=== PATIENT | female | born 1960 | race Caucasian/White ===

== ENCOUNTER 2017-02-15 22:24 | Inpatient (IN) | payer SELFPAY ==
[~2017-02-15] VITALS: Ht 157.5 cm; Wt 90.7 kg
[2017-02-15 22:25] VITALS: BP 155/82
[2017-02-15] MEDS ORDERED: Solu-MEDROL 125mg Inj IVP ONE (22:30)
[2017-02-15] MEDS ORDERED: Ipratropium 0.02% Inh Soln 2.5ml UD HHN ONE (22:30)
[2017-02-15] MEDS ORDERED: Albuterol ud Inhalation HHN ONE (22:30)
--- NOTE | 2017-02-15 22:31 | Emergency Room Report ---
History of Present Illness General Chief Complaint: Dyspnea/Respdistress Source: Patient, EMS Present Illness HPI This is a 56-year-old female with a psychiatric history. She's taking Seroquel. She's also pack-a-day smoker. She presents with chief complaint of shortness of breath the last week. Worse tonight. Denies smoking last 5 hours because she said she can't breathe her well. Coughing. Denies any fever chills denies any chest pain. Never had this problem before. Per EMS, her room air pulse ox was 81%. On oxygen and breathing treatment it went up to 97% . She denies any weight gain or edema. Not taking any medication. Allergies: Coded Allergies: No Known Allergies (Unverified , 02/15/17) Patient History Past Medical History: see triage record, old chart reviewed, psych hx Past Surgical History: other Pertinent Family History: none Social History: Reports: smoking Now: No Immunizations: other Reviewed Nursing Documentation: PMH: Agreed, PSxH: Agreed Nursing Documentation-PMH Past Medical History: No History, Except For Hx COPD: Yes History Of Psychiatric Problem: Yes - multiple suicidal attempts Review of Systems Eye: Denies: blurred vision, eye pain ENT: Denies: ear pain, nose congestion, throat swelling Respiratory: Reports: cough, shortness of breath Cardiovascular: Denies: chest pain, palpitations Gastrointestinal: Denies: abdominal pain, diarrhea, nausea, vomiting Musculoskeletal: Denies: back pain, joint pain Skin: Denies: rash Neurological: Denies: headache, numbness Endocrine: Denies: increased thirst, increased urine Hematologic/Lymphatic: Denies: easy bruising All Other Systems: negative except mentioned in HPI Physical Exam Vital Signs Date Time Temp Pulse Resp B/P Pulse Ox O2 Delivery O2 Flow Rate FiO2 02/15/17 22:15 119 16 155/82 92 Room Air vitals with tachycardia and hypoxia Sp02 EP Interpretation: reviewed, normal General Appearance: well appearing, alert, mild distress Head: normocephalic, atraumatic Eyes: bilateral eye EOMI, bilateral eye PERRL ENT: hearing grossly normal, normal pharynx Neck: full range of motion, supple, no meningismus Respiratory: chest non-tender, decreased breath sounds, wheezing Cardiovascular #1: regular rate, rhythm, no murmur, tachycardia Gastrointestinal: normal bowel sounds, non tender, no mass, no organomegaly, no bruit, non-distended Musculoskeletal: back normal, normal range of motion Neurologic: alert, oriented x3 Psychiatric: mood/affect normal Skin: warm/dry Procedures Critical Care Time Critical Care Time Critical care is mandated in this patient who presented with respiratory distress. Patient require my urgent intervention to attenuate the risks of respiratory collapse which may lead to cardiovascular collapse and . Critical care time is 35 minutes excluding any reportable procedure. Critical care time included evaluation, multiple reevaluation, looking at old charts, interpreting laboratory and diagnostic data, discussing case with patient and family and consultants, and charting. Medical Decision Making Diagnostic Impression: Primary Impression: Respiratory failure with hypoxia Qualified Codes: J96.01 - Acute respiratory failure with hypoxia Additional Impressions: COPD exacerbation New onset type 2 diabetes mellitus Obesity (BMI 30.0-34.9) Hypertension Qualified Codes: I10 - Essential (primary) hypertension ER Course Patient presents with rest or distress and respiratory failure. She felt much better after breathing treatment. Still slightly wheezing. We'll get a CT scan to rule out PE. Most likely she has underlying COPD from chronic smoking. Not on any medication for this. Probably has diabetes and high blood pressure also. Will get for further workup. Prognosis is poor probably secondary to noncompliance with medication. Laboratory Tests Test 02/15/17 22:30 White Blood Count 10.0 K/UL (4.8-10.8) Red Blood Count 4.83 M/UL (4.20-5.40) Hemoglobin 16.5 G/DL (12.0-16.0) H Hematocrit 47.2 % (37.0-47.0) H Mean Corpuscular Volume 98 FL (80-99) Mean Corpuscular Hemoglobin 34.2 PG (27.0-31.0) H Mean Corpuscular Hemoglobin Concent 34.9 G/DL (32.0-36.0) Red Cell Distribution Width 12.1 % (11.6-14.8) Platelet Count 257 K/UL (150-450) Mean Platelet Volume 6.4 FL (6.5-10.1) L Neutrophils (%) (Auto) 76.0 % (45.0-75.0) H Lymphocytes (%) (Auto) 18.8 % (20.0-45.0) L Monocytes (%) (Auto) 4.0 % (1.0-10.0) Eosinophils (%) (Auto) 0.4 % (0.0-3.0) Basophils (%) (Auto) 0.9 % (0.0-2.0) Sodium Level 133 mEQ/L (135-145) L Potassium Level 3.9 mEQ/L (3.4-4.9) Chloride Level 93 mEQ/L (98-107) L Carbon Dioxide Level 23 mEQ/L (20-30) Anion Gap 17 (5-15) H Blood Urea Nitrogen 8 mg/dL (7-23) Creatinine 0.7 mg/dL (0.5-0.9) Estimat Glomerular Filtration Rate > 60 mL/min (>60) Glucose Level 337 mg/dL (74-106) H Calcium Level 9.2 mg/dL (8.6-10.2) Total Bilirubin 0.2 mg/dL (0.0-1.2) Aspartate Amino Transf (AST/SGOT) 19 U/L (5-40) Alanine Aminotransferase (ALT/SGPT) 36 U/L (3-33) H Alkaline Phosphatase 112 U/L (35-104) H Total Creatine Kinase 22 U/L (26-140) L Creatine Kinase MB < 1.5 ng/mL (< 3.8) Creatine Kinase MB Relative Index 6.8 Troponin I < 0.30 ng/mL (<=0.30) Pro-B-Type Natriuretic Peptide 70 pg/mL (0-125) Total Protein 7.0 g/dL (6.6-8.7) Albumin 4.2 g/dL (3.5-5.2) Globulin 2.8 g/dL Albumin/Globulin Ratio 1.5 (1.0-2.7) Serum Alcohol < 10 mg/dL Lab Results Impression labs with elevated glucose EKG Diagnostic Results Rate: normal, tachycardiac Rhythm: NSR ST Segments: no acute changes Rhythm Strip Diag. Results EP Interpretation: yes Rate: 110 Rhythm: NSR, no PVC's, no ectopy Chest X-Ray Diagnostic Results EP Interpretation: Yes Findings: no consolidation, no effusion, no pneumothorax, no acute cardiopulmonary disease Number of Views: 1 CT/MRI/US Diagnostic Results CT/MRI/US Diagnostic Results : Imaging Test Ordered: CT chest Impression read by radiologist. Suboptimal exam. No focal infiltrate. Last Vital Signs Date Time Temp Pulse Resp B/P Pulse Ox O2 Delivery O2 Flow Rate FiO2 02/15/17 22:15 119 16 155/82 92 Room Air Status: improved Disposition: ADMITTED INPATIENT Condition: Serious SHANE CARLISLE M.D. Feb 15, 2017 22:30
[2017-02-15 22:50] LABS: BASOPHILS % (AUTO) 0.9 % (0.0-2.0); EOSINOPHILS % (AUTO) 0.4 % (0.0-3.0); LYMPHOCYTES % (AUTO) 18.8 % (20.0-45.0); MEAN CORPUSCULAR HEMOGLOBIN 34.2 PG (27.0-31.0); MEAN CORPUSCULAR HGB CONC 34.9 G/DL (32.0-36.0); MEAN CORPUSCULAR VOLUME 98 FL (80-99); MEAN PLATELET VOLUME 6.4 FL (6.5-10.1); PLATELET COUNT 257 K/UL (150-450); RED BLOOD COUNT 4.83 M/UL (4.20-5.40); RED CELL DISTRIBUTION WIDTH 12.1 % (11.6-14.8)
[2017-02-15 23:02] LABS: TROPONIN I < 0.30 ng/mL (<=0.30)
[2017-02-15 23:03] LABS: ALANINE AMINOTRANSFERASE 36 U/L (3-33); ALBUMIN/GLOBULIN RATIO 1.5 (1.0-2.7); ALCOHOL < 10 mg/dL; ANION GAP 17 (5-15); ASPARTATE AMINO TRANSFERASE 19 U/L (5-40); CALCIUM 9.2 mg/dL (8.6-10.2); CARBON DIOXIDE 23 mEQ/L (20-30); CHLORIDE 93 mEQ/L (98-107); CREATININE 0.7 mg/dL (0.5-0.9); GLOMERULAR FILTRATION RATE > 60 mL/min (>60); HEMOLYSIS 4; POTASSIUM 3.9 mEQ/L (3.4-4.9); SODIUM 133 mEQ/L (135-145)
[2017-02-15 23:13] LABS: CKMB < 1.5 ng/mL (< 3.8)
[2017-02-15 23:16] VITALS: BP 153/70
[2017-02-16] VITALS (7 sets, daily range): BP systolic 129–163; BP diastolic 70–98
[2017-02-16] MEDS ORDERED: Albuterol ud Inhalation HHN ONE
[2017-02-16 00:17] LABS: APPEARANCE,URINE CLEAR; KETONES,URINE 3+ (NEGATIVE); LEUKOCYTE ESTERASE ,URINE NEGATIVE (NEGATIVE); NITRITE,URINE NEGATIVE (NEGATIVE); PH,URINE 5 (4.5-8.0); PROTEIN,URINE NEGATIVE (NEGATIVE); UROBILINOGEN,URINE NORMAL MG/DL (0.0-1.0)
[2017-02-16] MEDS ORDERED: AMBIEN CR6.25 MG ORAL (00:53)
[2017-02-16] MEDS ORDERED: QUETIAPINE FUMA25 MG ORAL (00:53)
[2017-02-16] MEDS ORDERED: Metoclopramide 10mg/2ml Inj IVP PRN ×2 (01:45→20:00)
[2017-02-16] MEDS ORDERED: Zolpidem 5mg tab ORAL PRN ×2 (01:45→11:15)
[2017-02-16] MEDS ORDERED: Azithromycin Inj IV ONE (02:34)
[2017-02-16] MEDS: Solu-MEDROL 125mg Inj IVP SCH ×2 (02:45→08:59)
[2017-02-16] MEDS ORDERED: cefTRIAXone 1 GM in D5W 55 ML IV SCH (02:45)
[2017-02-16] MEDS ORDERED: Azithromycin 500 MG in D5W 275 ML IV SCH (02:45)
[2017-02-16] MEDS: DuoNeb 0.5-3(2.5)mg/3ml neb HHN SCH ×3 (07:09→19:50)
[2017-02-16] MEDS ORDERED: Tubing IV Secondary IV ONE (08:54)
[2017-02-16] MEDS ORDERED: D5W 275ml ONE (08:54)
[2017-02-16] MEDS ORDERED: NS 275ml ONE (08:54)
[2017-02-16] MEDS ORDERED: SEROQUEL400 MG ORAL (09:31)
[2017-02-16] MEDS ORDERED: SEROQUEL300 MG ORAL (09:31)
--- NOTE | 2017-02-16 09:57 | Diagnostic Imaging Report ---
Indication: Shortness of breath Technique: XRAY CHEST 1 V Comparison: None Findings: The cardiomediastinal silhouette is within normal limits. There is no focal consolidation, pneumothorax or pleural effusion. Chronic right rib fracture deformities are present. Impression: No acute cardiopulmonary disease.
--- NOTE | 2017-02-16 09:57 | Diagnostic Imaging Report ---
Indication: Shortness of breath Technique: CT pulmonary angiogram performed utilizing automated exposure control with intravenous contrast. Axial, sagittal and coronal reconstructions were obtained. 3-D volumetric reconstructions were also performed. CT dose: Total DLP 863 mGycm; CTDI vol 30.4 mGy Comparison: Chest x-ray of from earlier the same day Findings: There is inadequate contrast opacification of the pulmonary arteries. Motion also limits evaluation. A gross central pulmonary embolus is not identified but examination is otherwise insufficient to exclude pulmonary emboli. There is no obvious aortic dissection. There is no focal consolidation. Mild atelectasis is present. No pericardial or pleural effusions are identified. The heart size is within normal limits. There is fatty infiltration of the liver. Chronic appearing right-sided rib fracture deformities are seen. Mild degenerative changes of the spine are noted. Impression: Inadequate contrast opacification of the pulmonary arteries and respiratory motion limiting evaluation. No gross central pulmonary embolus but examination is otherwise insufficient to exclude pulmonary emboli. Further evaluation recommended as indicated. Mild atelectasis. Fatty liver. Chronic appearing right-sided rib fracture deformities. Clinical correlation recommended. The above report is concordant with preliminary reading by [facility]. The CT scanner at [facility] is accredited by the [employer] and the scans are performed using protocols designed to limit radiation exposure to as low as reasonably achievable to attain images of sufficient resolution adequate for diagnostic evaluation.
--- NOTE | 2017-02-16 09:59 | History & Physical ---
History and Physical History & Physicial HP dictated # [id number] HARRISON VEGA Feb 16, 2017 09:59
[2017-02-16] MEDS ORDERED: NovoLOG Insulin Flexpen SUBQ SCH (11:30)
[2017-02-16] MEDS: NovoLOG Insulin Flexpen SUBQ SCH ×2 (16:30→20:45)
--- NOTE | 2017-02-16 17:58 | History and Physical Report ---
DATE OF ADMISSION: 02/15/2017 CHIEF COMPLAINT: Shortness of breath. HISTORY OF PRESENT ILLNESS: This is a 56-year-old white female with history of schizophrenia, who was in her usual state of health until last night when she started getting short of breath and to the degree that she was even unable to talk on the phone. However, she managed finally to call the paramedics. She was brought into the emergency room and was found to have COPD and was admitted. The patient says that this is the first time she has had this problem, although she has been smoking for a long time. She had also some cough and sputum production yesterday. PAST MEDICAL HISTORY: History of schizophrenia and also she was diagnosed apparently with diabetes, but she said she was not given any medications. ALLERGIES: No known drug allergies. SOCIAL HISTORY: The patient smokes less than a pack a day, has been smoking for many years. No history of alcohol abuse. REVIEW OF SYSTEMS: Noncontributory except above. PHYSICAL EXAMINATION: GENERAL: The patient is a mildly obese female, feeling better. VITAL SIGNS: Blood pressure is 147/98, pulse is 92, temperature 96.6 degrees, and respiratory rate is 20. HEENT: Nikolai conjunctivae. Anicteric sclerae. NECK: Supple. LUNGS: Bilateral rhonchi throughout both lung roca. HEART: S1 and S2 without murmurs or rubs. ABDOMEN: Soft and nontender. EXTREMITIES: No cyanosis or edema. LABORATORY AND DIAGNOSTIC DATA: The CBC shows a WBC of 10,000, hematocrit 47.2, hemoglobin 16.5, and platelet is 257,000. Chemistry panel shows serum sodium 133, potassium 3.9, chloride 93, CO2 23, BUN 8 and creatinine 0.7. Troponin was negative. Urinalysis shows 4+ glucose and 3+ ketones. ASSESSMENT: This is a 56-year-old female with schizophrenia and diabetes mellitus, who was admitted with chronic obstructive pulmonary disease, new onset and she may have acute bronchitis as well. PLAN: The patient will be on bronchodilators, IV steroids, antibiotics, and oxygen. Also, we will order blood sugar checks and sliding scale insulin. Edgar Farrar M.D. DR: STEFANI JOB#: [id number] CC:
[2017-02-16] MEDS ORDERED: Solu-MEDROL 125mg Inj IVP SCH (21:00)
[2017-02-16] MEDS: Zolpidem 5mg tab ORAL PRN (23:52)
[2017-02-17] VITALS: BP 140/69
[2017-02-17] MEDS: DuoNeb 0.5-3(2.5)mg/3ml neb HHN SCH ×4 (01:35→19:11)
[2017-02-17] MEDS ORDERED: cefTRIAXone 1 GM in D5W 55 ML IV SCH (02:00)
[2017-02-17 04:00] VITALS: BP 142/76
[2017-02-17] MEDS: Azithromycin 500 MG in D5W 275 ML IV SCH (06:26)
[2017-02-17] MEDS: NovoLOG Insulin Flexpen SUBQ SCH ×4 (06:26→21:46)
[2017-02-17 08:00] VITALS: BP 114/68
[2017-02-17] MEDS ORDERED: NS 550ML IV ONE (08:38)
[2017-02-17] MEDS ORDERED: Tubing IV Secondary IV ONE (08:38)
--- NOTE | 2017-02-17 09:44 | General Progress Note ---
Assessment/Plan Problem List: (1) COPD exacerbation ICD Codes: J44.1 - Chronic obstructive pulmonary disease with (acute) exacerbation SNOMED: 271251015, 100817057 (2) Hypertension ICD Codes: I10 - Essential (primary) hypertension SNOMED: 43055888, 890093617 Qualifiers: Qualified Codes: I10 - Essential (primary) hypertension (3) Obesity (BMI 30.0-34.9) ICD Codes: E66.9 - Obesity, unspecified SNOMED: 919649428, 398271817 (4) New onset type 2 diabetes mellitus ICD Codes: E11.9 - Type 2 diabetes mellitus without complications SNOMED: 56978842 Assessment/Plan switch to po prednisone cont with Bronchodilators Dc Ceftriaxone SSI start metformin Subjective Allergies: Coded Allergies: No Known Allergies (Unverified , 02/15/17) Subjective feels better Objective Last 24 Hour Vital Signs Date Time Temp Pulse Resp B/P Pulse Ox O2 Delivery O2 Flow Rate FiO2 02/17/17 08:00 98.3 98 16 114/68 97 Room Air 02/17/17 07:55 104 22 98 Nasal Cannula 4.0 36 02/17/17 07:45 36 02/17/17 07:45 97 24 95 Nasal Cannula 4.0 36 02/17/17 04:00 97.3 101 19 142/76 92 Room Air 02/17/17 01:44 105 22 97 Nasal Cannula 4.0 36 02/17/17 01:35 36 02/17/17 01:35 106 24 90 Nasal Cannula 4.0 36 02/17/17 00:00 97.7 99 19 140/69 93 Room Air 02/16/17 20:00 103 20 97 Nasal Cannula 4.0 36 02/16/17 20:00 98.6 103 19 135/70 94 Room Air 02/16/17 19:50 98 20 93 Nasal Cannula 4.0 36 02/16/17 19:50 36 02/16/17 15:46 98.1 109 20 129/72 93 Nasal Cannula 4.0 02/16/17 12:36 105 20 98 Nasal Cannula 4.0 36 02/16/17 12:36 36 02/16/17 12:35 100 20 95 Nasal Cannula 4.0 36 02/16/17 11:43 98.2 104 21 142/82 94 Nasal Cannula 4.0 Intake and Output 02/16/17 02/17/17 19:00 07:00 Intake Total 570 ml 360 ml Balance 570 ml 360 ml Intake Oral 570 ml 360 ml # Voids 5 3 # Bowel Movements 3 1 Height (Feet): 5 Height (Inches): 2.00 Weight (Pounds): 200 Cardiovascular: normal rate Respiratory/Chest: lungs clear HARRISON VEGA Feb 17, 2017 09:44
[2017-02-17] MEDS: metFORMIN 500mg tab ORAL SCH ×2 (10:02→17:42)
[2017-02-17] MEDS: PredniSONE 20mg tab ORAL SCH (10:02)
--- NOTE | 2017-02-17 10:38 | Consultation ---
DATE OF CONSULTATION: HISTORY OF PRESENT ILLNESS: This is a 56-year-old female with a history of schizophrenia and depression, who has been admitted to the hospital status post taking an overdose on her medication. She was unsure how many pills she took ____ and she stated "yes that was a suicide attempt" and she just not wanted to live anymore. She wanted to fall asleep and never wake up. She elaborated on her father's a few years ago and stated that she still has over that. During the evaluation, she did have of depressed mood, anhedonia, worthlessness, hopelessness, and decreased energy. She denied any suicidal ideation, however, she is very angry when I spoke to her and advised to psychiatric hospitalization, she raised her voice and asked me not to " ." She asked me to leave her alone and never come back. PAST PSYCHIATRIC HISTORY: She has a history of schizophrenia, several psychiatric hospitalizations, treated with Seroquel and antidepressants in the past. PAST MEDICAL HISTORY: Includes hypertension, hyperlipidemia, and obesity. ALLERGIES: No known drug allergies. SUBSTANCE ABUSE HISTORY: She denied any history of illicit drug use or alcohol. SOCIAL HISTORY: The patient lives by herself. She is unmarried. No children. She states all her family is and she only has a cousin that she is not able to contact with. She is on disability. MENTAL STATUS EXAMINATION: The patient is alert and oriented x3. Somewhat uncooperative with examination and she is very guarded. She is disheveled and unkempt. Her speech is within normal limits. Her volume latency and frequency. Her mood is depressed and irritable. Affect is constricted. Congruent with mood. Thought process is concrete. Thought content, she denies any suicidal or homicidal ideations. She denies any auditory hallucinations or delusions. Cognition is intact. Insight and judgment is impaired. ASSESSMENT: AXIS I Schizophrenia, major depressive disorder, recurrent, moderate. AXIS II Deferred. AXIS III As above. AXIS IV Low to moderate. AXIS V Global assessment of functioning is 20. PLAN: 1. There is not going to be prescribe any medications at this point. 2. When medically cleared, she should be transferred to the psychiatric unit. I will order PET team evaluation. Of note, the patient had a bag of knives and pepper spray with herself. 3. Even though, the patient is not suicidal or homicidal, I still believe she is not in any danger to self and she does not have any support systems. She is depressed and she is very guarded. Pavel Morataya M.D. DR: Rodriguez JOB#: [id number] CC:
[2017-02-17 12:00] VITALS: BP 108/64
[2017-02-17 16:47] VITALS: BP 103/54
[2017-02-17] MEDS ORDERED: LORazepam Inj 2mg/ml 1ml IM ONE ×2 (19:30→20:00)
[2017-02-17] MEDS ORDERED: Haloperidol 5mg/ml Inj IM ONE ×2 (19:30→20:00)
[2017-02-17 20:00] VITALS: BP 161/80
[2017-02-17] MEDS ORDERED: DiphenhydrAMINE 25mg/10ml Elixir ORAL ONE (20:00)
[2017-02-17] MEDS: Zolpidem 5mg tab ORAL PRN (21:40)
[2017-02-18] VITALS: BP 133/63
[2017-02-18] MEDS: DuoNeb 0.5-3(2.5)mg/3ml neb HHN SCH ×4 (01:00→19:35)
[2017-02-18] MEDS ORDERED: Haloperidol 5mg/ml Inj IM ONE (03:00)
[2017-02-18 04:00] VITALS: BP 135/66
[2017-02-18] MEDS: Azithromycin 500 MG in D5W 275 ML IV SCH (04:00)
[2017-02-18] MEDS: NovoLOG Insulin Flexpen SUBQ SCH ×4 (06:19→23:05)
[2017-02-18 07:56] VITALS: BP 128/87
[2017-02-18] MEDS: PredniSONE 20mg tab ORAL SCH (08:48)
[2017-02-18] MEDS: metFORMIN 500mg tab ORAL SCH ×2 (08:49→18:00)
[2017-02-18] MEDS: Azithromycin 250mg tab ORAL SCH (08:50)
[2017-02-18] MEDS: Loperamide 2mg cap ORAL PRN ×4 (10:23→23:11)
[2017-02-18 12:00] VITALS: BP 137/68
[2017-02-18 16:00] VITALS: BP 132/84
[2017-02-18 20:00] VITALS: BP 153/73
--- NOTE | 2017-02-18 22:42 | General Progress Note ---
Assessment/Plan Problem List: (1) COPD exacerbation ICD Codes: J44.1 - Chronic obstructive pulmonary disease with (acute) exacerbation SNOMED: 657733613, 807854047 (2) Hypertension ICD Codes: I10 - Essential (primary) hypertension SNOMED: 13365417, 895274454 Qualifiers: Qualified Codes: I10 - Essential (primary) hypertension (3) Obesity (BMI 30.0-34.9) ICD Codes: E66.9 - Obesity, unspecified SNOMED: 672201517, 476993174 (4) New onset type 2 diabetes mellitus ICD Codes: E11.9 - Type 2 diabetes mellitus without complications SNOMED: 78640929 Assessment/Plan cont steroids Imodium PRN cont with Bronchodilators PET team eval pt is medically cleared for discharge Subjective Allergies: Coded Allergies: No Known Allergies (Unverified , 02/15/17) Subjective feels better C/O diarrhea Objective Last 24 Hour Vital Signs Date Time Temp Pulse Resp B/P Pulse Ox O2 Delivery O2 Flow Rate FiO2 02/18/17 20:00 98.1 103 18 153/73 94 Room Air 02/18/17 19:43 28 02/18/17 19:43 91 20 98 Nasal Cannula 2.0 28 02/18/17 19:34 107 18 95 Nasal Cannula 2.0 28 02/18/17 16:00 98.0 91 20 132/84 94 Room Air 02/18/17 13:00 97 18 95 Nasal Cannula 2.0 28 02/18/17 13:00 97 20 98 Nasal Cannula 2.0 28 02/18/17 12:00 97.5 102 20 137/68 91 Room Air 02/18/17 07:56 98.0 97 20 128/87 95 Room Air 02/18/17 07:21 97 20 98 Nasal Cannula 2.0 28 02/18/17 07:11 97 18 95 Nasal Cannula 2.0 28 02/18/17 07:11 28 02/18/17 04:00 97.9 98 20 135/66 92 Room Air 02/18/17 01:02 Nasal Cannula 02/18/17 01:01 Nasal Cannula 4.0 36 02/18/17 00:00 98.4 103 18 133/63 92 Room Air Intake and Output 02/17/17 02/18/17 19:00 07:00 Intake Total 840 ml 320 ml Balance 840 ml 320 ml Intake Oral 840 ml 320 ml # Voids 3 3 # Bowel Movements 2 2 Height (Feet): 5 Height (Inches): 2.00 Weight (Pounds): 200 Cardiovascular: normal rate Respiratory/Chest: lungs clear HARRISON VEGA Feb 18, 2017 22:42
[2017-02-18] MEDS: Zolpidem 5mg tab ORAL PRN (23:09)
--- NOTE | 2017-02-18 23:48 | Progress Note ---
SUBJECTIVE: The patient attempted to leave the medical center against medical advice. PET team evaluation order has been placed. The patient is very irritable, anxious, uncooperative. She has had a suicide attempt. She is currently denying any suicide attempt, however, she has high risk factors including history of suicide attempt in the past, diagnosed with schizophrenia and depression, living alone, poor support system, and financial issues. MENTAL STATUS EXAMINATION: Alert and oriented x3. Mood is irritable. Affect is constricted, congruent with mood. Thought process is concrete. Thought content, denies any suicidal or homicidal ideations. ASSESSMENT: 1. Schizophrenia. 2. Major depressive disorder. PLAN: 1. The patient will be continued on Seroquel 300 mg at bedtime. 2. She meets the criteria for psychiatric inpatient level of care. Pavel Morataya M.D. DR: KYAW JOB#: [id number] CC:
[2017-02-19] MEDS: DuoNeb 0.5-3(2.5)mg/3ml neb HHN SCH ×4 (00:01→19:00)
[2017-02-19 00:18] VITALS: BP 144/76
[2017-02-19 04:00] VITALS: BP 136/76
[2017-02-19] MEDS: NovoLOG Insulin Flexpen SUBQ SCH ×4 (06:54→21:01)
[2017-02-19 08:00] VITALS: BP 136/63
[2017-02-19] MEDS: PredniSONE 20mg tab ORAL SCH (08:48)
[2017-02-19] MEDS: Azithromycin 250mg tab ORAL SCH (08:48)
[2017-02-19] MEDS: metFORMIN 500mg tab ORAL SCH ×2 (08:48→17:31)
[2017-02-19] MEDS: Loperamide 2mg cap ORAL PRN (08:48)
[2017-02-19 12:00] VITALS: BP 126/73
--- NOTE | 2017-02-19 16:08 | General Progress Note ---
Assessment/Plan Problem List: (1) COPD exacerbation ICD Codes: J44.1 - Chronic obstructive pulmonary disease with (acute) exacerbation SNOMED: 246009134, 218254937 (2) Hypertension ICD Codes: I10 - Essential (primary) hypertension SNOMED: 41193415, 843310908 Qualifiers: Qualified Codes: I10 - Essential (primary) hypertension (3) Obesity (BMI 30.0-34.9) ICD Codes: E66.9 - Obesity, unspecified SNOMED: 685784630, 949696366 (4) New onset type 2 diabetes mellitus ICD Codes: E11.9 - Type 2 diabetes mellitus without complications SNOMED: 99622214 Assessment/Plan cont steroids Imodium PRN cont with Bronchodilators PET team eval pt is medically cleared for discharge discussed with RN Subjective Allergies: Coded Allergies: No Known Allergies (Unverified , 02/15/17) Subjective all noted Objective Last 24 Hour Vital Signs Date Time Temp Pulse Resp B/P Pulse Ox O2 Delivery O2 Flow Rate FiO2 02/19/17 13:04 Room Air 21 02/19/17 13:04 Room Air 21 02/19/17 12:00 97.9 98 18 126/73 89 Simple Mask 02/19/17 08:00 97.2 98 22 136/63 90 Room Air 02/19/17 08:00 92 18 99 Nasal Cannula 2.0 28 02/19/17 07:49 28 02/19/17 07:49 91 18 97 Nasal Cannula 2.0 28 02/19/17 04:00 97.2 94 19 136/76 94 Room Air 02/19/17 00:18 97.0 97 18 144/76 94 Room Air 02/19/17 00:08 93 20 98 Nasal Cannula 2.0 28 02/19/17 00:01 98 20 97 Nasal Cannula 2.0 28 02/19/17 00:01 28 02/18/17 20:00 98.1 103 18 153/73 94 Room Air 02/18/17 19:43 28 02/18/17 19:43 91 20 98 Nasal Cannula 2.0 28 02/18/17 19:34 107 18 95 Nasal Cannula 2.0 28 Intake and Output 02/18/17 02/19/17 18:59 06:59 Intake Total 600 ml 900 ml Balance 600 ml 900 ml Intake Oral 600 ml 900 ml # Voids 3 3 # Bowel Movements 1 Height (Feet): 5 Height (Inches): 2.00 Weight (Pounds): 200 HARRISON VEGA Feb 19, 2017 16:08
--- NOTE | 2017-02-19 16:14 | Cardiology Report ---
APPROVED REPORT EKG Measurement Heart [id number] Sinus tachycardia Otherwise normal ECG
[2017-02-19 16:54] VITALS: BP 110/72
[2017-02-19 20:13] VITALS: BP 132/84
--- NOTE | 2017-02-19 20:18 | Progress Note ---
DATE: 02/19/2017 SUBJECTIVE: The patient was walking outside of her room with the sitter. She continues to be depressed, has irritable mood and decreased energy, and complained of having a sitter. The patient was explained what was the purpose of having a sitter and she denies any suicidal ideation; however, she still has high risk factors and I believe if discharged, she would be high risk for danger to self. MENTAL STATUS EXAMINATION: Alert and oriented x4. Mood is depressed. Affect is constricted, congruent with mood. Thought process is concrete. Thought content, she denies any suicidal or homicidal ideation. No delusions. Insight and judgment impaired. ASSESSMENT: Schizophrenia, status post suicide attempt. PLAN: 1. The patient will be continued on her current medication. 2. PET team evaluation was ordered. The patient will be evaluated once medically cleared. She is currently having diarrhea. 3. Discussed the case with her nurse. Pavel Morataya M.D. DR: Adam JOB#: [id number] CC:
[2017-02-19] MEDS: QUEtiapine 200mg tab ORAL SCH (20:55)
[2017-02-19] MEDS: Zolpidem 5mg tab ORAL PRN (20:57)
[2017-02-20 00:14] VITALS: BP 125/70
[2017-02-20] MEDS: DuoNeb 0.5-3(2.5)mg/3ml neb HHN SCH ×4 (00:48→19:19)
[2017-02-20 04:00] VITALS: BP 135/79
[2017-02-20] MEDS: NovoLOG Insulin Flexpen SUBQ SCH ×4 (06:22→21:11)
[2017-02-20 07:58] VITALS: BP 142/74
[2017-02-20] MEDS: metFORMIN 500mg tab ORAL SCH ×2 (08:14→17:38)
[2017-02-20] MEDS: Azithromycin 250mg tab ORAL SCH (08:14)
[2017-02-20] MEDS: PredniSONE 20mg tab ORAL SCH (08:14)
--- NOTE | 2017-02-20 11:47 | General Progress Note ---
Assessment/Plan Problem List: (1) COPD exacerbation ICD Codes: J44.1 - Chronic obstructive pulmonary disease with (acute) exacerbation SNOMED: 296141503, 801220815 (2) Hypertension ICD Codes: I10 - Essential (primary) hypertension SNOMED: 47804083, 643457216 Qualifiers: Qualified Codes: I10 - Essential (primary) hypertension (3) Obesity (BMI 30.0-34.9) ICD Codes: E66.9 - Obesity, unspecified SNOMED: 626004909, 301799952 (4) New onset type 2 diabetes mellitus ICD Codes: E11.9 - Type 2 diabetes mellitus without complications SNOMED: 85849331 Assessment/Plan taper steroids Imodium PRN cont with Bronchodilators PET team eval pt is medically cleared for discharge discussed with RN Discussed with family lawyer Subjective Allergies: Coded Allergies: No Known Allergies (Unverified , 02/15/17) Subjective In NAD Objective Last 24 Hour Vital Signs Date Time Temp Pulse Resp B/P Pulse Ox O2 Delivery O2 Flow Rate FiO2 02/20/17 07:58 98.1 87 19 142/74 90 Nasal Cannula 02/20/17 06:57 75 18 99 Room Air 02/20/17 06:54 76 18 93 Room Air 02/20/17 04:00 97.2 86 19 135/79 92 Room Air 02/20/17 00:49 Room Air 02/20/17 00:48 Room Air 02/20/17 00:14 97.7 97 18 125/70 91 Room Air 02/19/17 20:13 97.5 92 18 132/84 92 Room Air 02/19/17 19:00 Room Air 02/19/17 19:00 Room Air 02/19/17 16:54 97.3 97 21 110/72 96 Simple Mask 02/19/17 13:04 Room Air 21 02/19/17 13:04 Room Air 21 02/19/17 12:00 97.9 98 18 126/73 89 Simple Mask Intake and Output 02/19/17 02/20/17 19:00 07:00 # Voids 3 2 Height (Feet): 5 Height (Inches): 2.00 Weight (Pounds): 200 Cardiovascular: normal rate Respiratory/Chest: expiratory wheezing - mild HARRISON VEGA Feb 20, 2017 11:46
[2017-02-20 12:00] VITALS: BP 133/65
[2017-02-20 16:00] VITALS: BP 129/47
[2017-02-20] MEDS: Loperamide 2mg cap ORAL PRN (16:56)
[2017-02-20 20:00] VITALS: BP 136/72
[2017-02-20] MEDS: QUEtiapine 200mg tab ORAL SCH (21:54)
[2017-02-20] MEDS: Zolpidem 5mg tab ORAL PRN (21:54)
--- NOTE | 2017-02-20 23:08 | Progress Note ---
SUBJECTIVE: The patient is denying any suicidal or homicidal ideations. Presents with depressed mood, irritable mood, anxiety. Today, came to the hospital and reviewed the notes and medical records of the patient, the patient is in a process of being evicted from her house, [facility] did not accept the patient as the patient has no insurance and is not medically cleared. During the evaluation, the patient still continues to endorse depressed mood, anhedonia, worthlessness, and hopelessness. She denied any suicidal or homicidal ideation. MENTAL STATUS EXAMINATION: The patient is alert and oriented x3. Mood is irritable. Affect is flat. Congruent with mood. Thought process is concrete. Thought content, no suicidal or homicidal ideation. ASSESSMENT: Schizophrenia by history. PLAN: 1. We will continue Seroquel 400 mg at bedtime and 300 mg in the morning. 2. The patient may leave the hospital and she may follow with the outpatient psychiatrist and therapist. Pavel Morataya M.D. DR: Loretta JOB#: [id number] CC:
[2017-02-21] VITALS: BP 133/76
[2017-02-21] MEDS: DuoNeb 0.5-3(2.5)mg/3ml neb HHN SCH ×3 (01:00→13:30)
[2017-02-21 04:00] VITALS: BP 131/62
[2017-02-21] MEDS: NovoLOG Insulin Flexpen SUBQ SCH ×4 (05:58→22:04)
[2017-02-21 08:00] VITALS: BP 130/88
[2017-02-21] MEDS: metFORMIN 500mg tab ORAL SCH ×2 (08:22→17:38)
[2017-02-21] MEDS: Azithromycin 250mg tab ORAL SCH (08:23)
[2017-02-21] MEDS ORDERED: PredniSONE 20mg tab ORAL SCH (09:00)
--- NOTE | 2017-02-21 11:43 | General Progress Note ---
Assessment/Plan Problem List: (1) COPD exacerbation ICD Codes: J44.1 - Chronic obstructive pulmonary disease with (acute) exacerbation SNOMED: 804295648, 694707804 (2) Hypertension ICD Codes: I10 - Essential (primary) hypertension SNOMED: 54368442, 993930328 Qualifiers: Qualified Codes: I10 - Essential (primary) hypertension (3) Obesity (BMI 30.0-34.9) ICD Codes: E66.9 - Obesity, unspecified SNOMED: 381403093, 073506797 (4) New onset type 2 diabetes mellitus ICD Codes: E11.9 - Type 2 diabetes mellitus without complications SNOMED: 48149170 Assessment/Plan taper steroids Imodium PRN cont with Bronchodilators Add Januvia pt is medically cleared for discharge discussed with RN Melani Morataya Subjective Allergies: Coded Allergies: No Known Allergies (Unverified , 02/15/17) Subjective wants to leave Objective Last 24 Hour Vital Signs Date Time Temp Pulse Resp B/P Pulse Ox O2 Delivery O2 Flow Rate FiO2 02/21/17 08:00 97.7 91 19 130/88 93 Room Air 02/21/17 07:47 88 18 99 Room Air 02/21/17 07:37 90 18 95 Room Air 02/21/17 07:37 28 02/21/17 04:00 97.5 92 20 131/62 91 Room Air 02/21/17 03:26 109 20 Room Air 21 02/21/17 01:17 Room Air 02/21/17 01:17 Room Air 02/21/17 00:00 97.3 100 19 133/76 93 Room Air 02/20/17 20:00 97.9 92 19 136/72 91 Room Air 02/20/17 19:24 69 18 99 Room Air 02/20/17 19:18 99 20 93 Room Air 02/20/17 19:18 28 02/20/17 17:17 94 Nasal Cannula 2.0 02/20/17 16:00 98.2 93 20 129/47 91 Room Air 02/20/17 13:05 Room Air 02/20/17 13:04 Room Air 02/20/17 12:00 98.1 93 20 133/65 93 Room Air Intake and Output 02/20/17 02/21/17 19:00 07:00 Intake Total 450 ml 360 ml Balance 450 ml 360 ml Intake Oral 450 ml 360 ml # Voids 3 3 Height (Feet): 5 Height (Inches): 2.00 Weight (Pounds): 200 Cardiovascular: normal rate Respiratory/Chest: lungs clear Edema: no edema noted Generalized HARRISON VEGA Feb 21, 2017 11:43
[2017-02-21] MEDS: Loperamide 2mg cap ORAL PRN (11:52)
[2017-02-21 12:00] VITALS: BP 135/67
[2017-02-21 16:00] VITALS: BP 149/88
[2017-02-21 20:30] VITALS: BP 146/83
[2017-02-21] MEDS: Zolpidem 5mg tab ORAL PRN (22:00)
[2017-02-22] VITALS: BP 138/76
[2017-02-22 04:00] VITALS: BP 149/83
[2017-02-22] MEDS: NovoLOG Insulin Flexpen SUBQ SCH ×4 (06:17→21:03)
[2017-02-22 08:00] VITALS: BP 148/78
[2017-02-22] MEDS: metFORMIN 500mg tab ORAL SCH ×2 (09:29→17:42)
[2017-02-22] MEDS: PredniSONE 20mg tab ORAL SCH (09:41)
[2017-02-22 12:00] VITALS: BP 163/96
[2017-02-22 15:53] VITALS: BP 155/88
[2017-02-22] MEDS: Irbesartan 150mg tablet ORAL SCH (17:42)
--- NOTE | 2017-02-22 18:00 | General Progress Note ---
Assessment/Plan Problem List: (1) COPD exacerbation ICD Codes: J44.1 - Chronic obstructive pulmonary disease with (acute) exacerbation SNOMED: 675186364, 011901531 (2) Hypertension ICD Codes: I10 - Essential (primary) hypertension SNOMED: 74754576, 402523226 Qualifiers: Qualified Codes: I10 - Essential (primary) hypertension (3) Obesity (BMI 30.0-34.9) ICD Codes: E66.9 - Obesity, unspecified SNOMED: 494041162, 788194698 (4) New onset type 2 diabetes mellitus ICD Codes: E11.9 - Type 2 diabetes mellitus without complications SNOMED: 70895860 Assessment/Plan taper steroids Imodium PRN cont with Bronchodilators watch BS Add BP meds pt is medically cleared for discharge discussed with RN Subjective Allergies: Coded Allergies: No Known Allergies (Unverified , 02/15/17) Subjective In NAD Objective Last 24 Hour Vital Signs Date Time Temp Pulse Resp B/P Pulse Ox O2 Delivery O2 Flow Rate FiO2 02/22/17 17:42 155/88 02/22/17 15:53 97.6 88 18 155/88 92 Room Air 02/22/17 12:00 97.0 94 19 163/96 91 Room Air 02/22/17 08:00 97.9 88 20 148/78 91 Room Air 02/22/17 04:00 98.9 90 16 149/83 93 Room Air 02/22/17 00:00 97.3 84 18 138/76 96 Room Air 02/21/17 20:30 97.9 86 16 146/83 93 Room Air Intake and Output 02/21/17 02/22/17 19:00 07:00 Intake Total 600 ml Balance 600 ml Intake Oral 600 ml # Voids 3 Height (Feet): 5 Height (Inches): 2.00 Weight (Pounds): 200 Cardiovascular: normal rate Respiratory/Chest: lungs clear Edema: no edema noted HARRISON Astudillo Feb 22, 2017 18:00
[2017-02-22] MEDS: DuoNeb 0.5-3(2.5)mg/3ml neb HHN SCH (19:58)
[2017-02-22 20:00] VITALS: BP 146/84
[2017-02-22] MEDS: Zolpidem 5mg tab ORAL PRN (21:02)
[2017-02-23] VITALS (7 sets, daily range): BP systolic 130–147; BP diastolic 68–92
[2017-02-23] MEDS: DuoNeb 0.5-3(2.5)mg/3ml neb HHN SCH ×2 (01:26→09:00)
[2017-02-23] MEDS: NovoLOG Insulin Flexpen SUBQ SCH ×4 (05:48→21:35)
[2017-02-23] MEDS: metFORMIN 500mg tab ORAL SCH ×2 (09:15→17:42)
[2017-02-23] MEDS: Irbesartan 150mg tablet ORAL SCH (09:16)
[2017-02-23] MEDS: PredniSONE 20mg tab ORAL SCH (09:18)
[2017-02-23] MEDS ORDERED: Albuterol 90mcg Inhaler 8gm INH PRN (18:00)
--- NOTE | 2017-02-23 18:01 | General Progress Note ---
Assessment/Plan Problem List: (1) COPD exacerbation ICD Codes: J44.1 - Chronic obstructive pulmonary disease with (acute) exacerbation SNOMED: 994883203, 005927419 (2) Hypertension ICD Codes: I10 - Essential (primary) hypertension SNOMED: 15608856, 600039991 Qualifiers: Qualified Codes: I10 - Essential (primary) hypertension (3) Obesity (BMI 30.0-34.9) ICD Codes: E66.9 - Obesity, unspecified SNOMED: 026149971, 259823056 (4) New onset type 2 diabetes mellitus ICD Codes: E11.9 - Type 2 diabetes mellitus without complications SNOMED: 00646733 Assessment/Plan Start Albuterol inhalers watch BS pt is medically cleared for discharge discussed with FABIOLA Benoit Subjective Allergies: Coded Allergies: No Known Allergies (Unverified , 02/15/17) Subjective C/O sputum production Objective Last 24 Hour Vital Signs Date Time Temp Pulse Resp B/P Pulse Ox O2 Delivery O2 Flow Rate FiO2 02/23/17 16:00 97.1 90 18 142/79 90 Room Air 02/23/17 12:09 83 16 99 Nasal Cannula 2.0 28 02/23/17 12:07 28 02/23/17 12:06 83 16 97 Nasal Cannula 2.0 28 02/23/17 12:00 97.3 98 18 147/68 94 Nasal Cannula 2.0 02/23/17 09:16 130/73 02/23/17 09:00 92 18 94 Nasal Cannula 2.0 28 02/23/17 09:00 21 02/23/17 09:00 92 18 88 Room Air 21 02/23/17 08:00 97.3 91 18 130/73 92 Room Air 02/23/17 04:00 97.2 91 18 146/70 92 Room Air 02/23/17 01:34 90 18 98 Room Air 02/23/17 01:26 91 18 93 Room Air 02/23/17 00:00 97.6 79 18 138/80 94 Room Air 02/22/17 20:06 81 18 99 Room Air 02/22/17 20:00 97.9 88 18 146/84 93 Room Air 02/22/17 19:58 88 18 93 Room Air 02/22/17 19:57 88 18 Room Air Intake and Output 02/22/17 02/23/17 19:00 07:00 Intake Total 800 ml Balance 800 ml Intake Oral 800 ml # Voids 4 2 Height (Feet): 5 Height (Inches): 2.00 Weight (Pounds): 200 Cardiovascular: regular rhythm Respiratory/Chest: lungs clear HARRISON VEGA Feb 23, 2017 18:01
[2017-02-23] MEDS: Advair 250/50 Inhaler - 14 dose INH SCH (18:36)
[2017-02-23] MEDS: Zolpidem 5mg tab ORAL PRN (21:30)
[2017-02-24] VITALS: BP 139/71
[2017-02-24 04:00] VITALS: BP 141/78
[2017-02-24] MEDS: NovoLOG Insulin Flexpen SUBQ SCH ×4 (06:20→21:16)
[2017-02-24 08:00] VITALS: BP 145/81
[2017-02-24] MEDS: Advair 250/50 Inhaler - 14 dose INH SCH ×2 (08:54→19:13)
[2017-02-24] MEDS: metFORMIN 500mg tab ORAL SCH ×2 (09:05→17:50)
[2017-02-24] MEDS: PredniSONE 20mg tab ORAL SCH (09:05)
[2017-02-24] MEDS: Irbesartan 150mg tablet ORAL SCH (09:06)
[2017-02-24 11:58] VITALS: BP 131/84
--- NOTE | 2017-02-24 12:48 | General Progress Note ---
Assessment/Plan Problem List: (1) COPD exacerbation ICD Codes: J44.1 - Chronic obstructive pulmonary disease with (acute) exacerbation SNOMED: 182344713, 611528287 (2) Hypertension ICD Codes: I10 - Essential (primary) hypertension SNOMED: 44690010, 315136499 Qualifiers: Qualified Codes: I10 - Essential (primary) hypertension (3) Obesity (BMI 30.0-34.9) ICD Codes: E66.9 - Obesity, unspecified SNOMED: 990927878, 884538561 (4) New onset type 2 diabetes mellitus ICD Codes: E11.9 - Type 2 diabetes mellitus without complications SNOMED: 02487078 Assessment/Plan Albuterol inhalers watch BS pt is medically cleared for discharge discussed with RN Subjective Allergies: Coded Allergies: No Known Allergies (Unverified , 02/15/17) Subjective feels ok Objective Last 24 Hour Vital Signs Date Time Temp Pulse Resp B/P Pulse Ox O2 Delivery O2 Flow Rate FiO2 02/24/17 11:58 96.8 92 20 131/84 95 Nasal Cannula 15.0 02/24/17 09:06 145/81 02/24/17 08:52 94 16 92 Room Air 21 02/24/17 08:52 94 16 93 Room Air 21 02/24/17 08:00 98.2 90 20 145/81 94 Nasal Cannula 15.0 02/24/17 04:00 97.9 98 18 141/78 94 Room Air 02/24/17 00:00 97.5 99 18 139/71 94 Room Air 02/23/17 20:00 97.2 83 18 135/92 96 Room Air 02/23/17 19:29 Room Air 02/23/17 19:28 Room Air 02/23/17 16:00 97.1 90 18 142/79 90 Room Air Intake and Output 02/23/17 02/24/17 19:00 07:00 Intake Total 1000 ml 75 ml Balance 1000 ml 75 ml Intake Oral 1000 ml Other 75 ml # Voids 5 3 Height (Feet): 5 Height (Inches): 2.00 Weight (Pounds): 200 Cardiovascular: normal rate Respiratory/Chest: lungs clear Edema: no edema noted HARRISON Astudillo Feb 24, 2017 12:48
[2017-02-24 16:00] VITALS: BP 149/79
[2017-02-24 20:00] VITALS: BP 137/67
[2017-02-24] MEDS: Zolpidem 5mg tab ORAL PRN (22:11)
[2017-02-25 04:00] VITALS: BP 115/75
[2017-02-25] MEDS: NovoLOG Insulin Flexpen SUBQ SCH ×4 (06:47→20:52)
[2017-02-25] MEDS: Advair 250/50 Inhaler - 14 dose INH SCH (07:31)
[2017-02-25] MEDS: Irbesartan 150mg tablet ORAL SCH (09:17)
[2017-02-25] MEDS: metFORMIN 500mg tab ORAL SCH ×2 (09:17→17:48)
[2017-02-25] MEDS: PredniSONE 20mg tab ORAL SCH (09:17)
[2017-02-25 16:00] VITALS: BP 143/71
[2017-02-25 20:00] VITALS: BP 138/80
--- NOTE | 2017-02-25 20:23 | General Progress Note ---
Assessment/Plan Problem List: (1) COPD exacerbation ICD Codes: J44.1 - Chronic obstructive pulmonary disease with (acute) exacerbation SNOMED: 271258493, 938837666 (2) Hypertension ICD Codes: I10 - Essential (primary) hypertension SNOMED: 48123556, 812159700 Qualifiers: Qualified Codes: I10 - Essential (primary) hypertension (3) Obesity (BMI 30.0-34.9) ICD Codes: E66.9 - Obesity, unspecified SNOMED: 458493673, 964207477 (4) New onset type 2 diabetes mellitus ICD Codes: E11.9 - Type 2 diabetes mellitus without complications SNOMED: 60083979 Assessment/Plan Albuterol inhalers watch BS pt is medically cleared for discharge discussed with RN Subjective Allergies: Coded Allergies: No Known Allergies (Unverified , 02/15/17) Subjective feels ok Objective Last 24 Hour Vital Signs Date Time Temp Pulse Resp B/P Pulse Ox O2 Delivery O2 Flow Rate FiO2 02/25/17 19:30 Room Air 21 02/25/17 19:30 88 20 94 Room Air 21 02/25/17 16:00 98.1 90 20 143/71 93 Room Air 02/25/17 09:17 115/75 02/25/17 07:31 91 20 95 Room Air 15.0 21 02/25/17 07:31 91 20 95 Room Air 21 02/25/17 04:00 91 20 115/75 95 Room Air Intake and Output 02/24/17 02/25/17 19:00 07:00 Intake Total 1000 ml 450 ml Balance 1000 ml 450 ml Intake Oral 1000 ml 450 ml # Voids 5 3 # Bowel Movements 1 1 Height (Feet): 5 Height (Inches): 2.00 Weight (Pounds): 200 Cardiovascular: normal rate Respiratory/Chest: lungs clear HARRISON VEGA Feb 25, 2017 20:22
[2017-02-25] MEDS: Zolpidem 5mg tab ORAL PRN (20:55)
[2017-02-26] VITALS: BP 134/76
--- NOTE | 2017-02-26 01:48 | Progress Note ---
DATE: 02/25/2017 SUBJECTIVE: The patient has been presented with depressed mood, and anhedonia. However, her anxiety and agitation has improved. The patient is less impulsive, less irritable and more engaged. She is back today opened up about having a cousin who is also a air drill operator. She expects that she would feel safe with him. I spoke with the social worker psychiatric, who is very involved in this patient's care. We decided to contact her cousin and if we have a safe time the patient may be discharged. Actually, she has not been suicidal for the past 5 days. The patient stated that she would take her medication, follow up with her psychiatrist and if she becomes suicidal she agreed to go to a nearest emergency room. MENTAL STATUS EXAMINATION: The patient is alert and oriented x4. Cooperative. More pleasant. Mood is depressed. Affect is constricted. Congruent mood. Thought process is concrete. Thought content, no suicidal or homicidal ideation. ASSESSMENT: 1. Schizophrenia. 2. Depression. PLAN: 1. The patient will be continued on citalopram 10 mg in the morning. 2. She will be continued on risperidone and the dosage will be increased to 4 mg at bedtime. 3. At the time of the evaluation, the patient is not an immediate danger to self or others and is not gravely disabled. The patient may be discharged to her cousin and follow up with her psychiatrist. She was provided with a script of her medication. Pavel Morataya M.D. DR: KJ JOB#: [id number] CC:
[2017-02-26 04:00] VITALS: BP 148/82
[2017-02-26] MEDS: NovoLOG Insulin Flexpen SUBQ SCH ×4 (06:12→21:09)
[2017-02-26] MEDS: Advair 250/50 Inhaler - 14 dose INH SCH ×3 (07:29→22:00)
[2017-02-26 08:15] VITALS: BP 132/80
[2017-02-26] MEDS: PredniSONE 20mg tab ORAL SCH (08:38)
[2017-02-26] MEDS: metFORMIN 500mg tab ORAL SCH ×2 (08:39→18:09)
[2017-02-26] MEDS: Irbesartan 150mg tablet ORAL SCH (08:39)
--- NOTE | 2017-02-26 11:29 | General Progress Note ---
Assessment/Plan Problem List: (1) COPD exacerbation ICD Codes: J44.1 - Chronic obstructive pulmonary disease with (acute) exacerbation SNOMED: 323820175, 109357905 (2) Hypertension ICD Codes: I10 - Essential (primary) hypertension SNOMED: 84699098, 634588171 Qualifiers: Qualified Codes: I10 - Essential (primary) hypertension (3) Obesity (BMI 30.0-34.9) ICD Codes: E66.9 - Obesity, unspecified SNOMED: 132393226, 818283639 (4) New onset type 2 diabetes mellitus ICD Codes: E11.9 - Type 2 diabetes mellitus without complications SNOMED: 03419194 Assessment/Plan DC prednisone Advair watch BS pt is medically cleared for discharge discussed with RN Subjective Allergies: Coded Allergies: No Known Allergies (Unverified , 02/15/17) Subjective feels ok Objective Last 24 Hour Vital Signs Date Time Temp Pulse Resp B/P Pulse Ox O2 Delivery O2 Flow Rate FiO2 02/26/17 08:39 132/80 02/26/17 08:15 97.3 98 18 132/80 94 Room Air 02/26/17 07:33 96 19 97 Room Air 21 02/26/17 07:33 94 18 97 Room Air 21 02/26/17 04:00 97.7 82 16 148/82 95 Room Air 02/26/17 00:00 97.3 84 18 134/76 95 Room Air 02/25/17 20:00 97.6 88 18 138/80 93 Room Air 02/25/17 19:30 Room Air 21 02/25/17 19:30 88 20 94 Room Air 21 02/25/17 16:00 98.1 90 20 143/71 93 Room Air Intake and Output 02/25/17 02/26/17 19:00 07:00 Intake Total 320 ml 360 ml Balance 320 ml 360 ml Intake Oral 320 ml 360 ml # Voids 4 2 # Bowel Movements 1 Height (Feet): 5 Height (Inches): 2.00 Weight (Pounds): 200 Cardiovascular: normal rate Respiratory/Chest: lungs clear HARRISON VEGA Feb 26, 2017 11:29
[2017-02-26 12:15] VITALS: BP 124/71
[2017-02-26 15:54] VITALS: BP 143/62
[2017-02-26 20:00] VITALS: BP 145/78
[2017-02-26] MEDS: Zolpidem 5mg tab ORAL PRN (21:04)
[2017-02-27 04:00] VITALS: BP 140/74
[2017-02-27] MEDS: NovoLOG Insulin Flexpen SUBQ SCH ×2 (06:42→11:34)
[2017-02-27 08:08] VITALS: BP 120/73
[2017-02-27] MEDS: metFORMIN 500mg tab ORAL SCH (08:53)
[2017-02-27] MEDS: Irbesartan 150mg tablet ORAL SCH (08:53)
[2017-02-27] MEDS: Advair 250/50 Inhaler - 14 dose INH SCH (09:46)
[2017-02-27] MEDS: Loperamide 2mg cap ORAL PRN (09:52)
[2017-02-27 11:52] VITALS: BP 114/67
--- NOTE | 2017-02-27 12:44 | General Progress Note ---
Assessment/Plan Problem List: (1) COPD exacerbation ICD Codes: J44.1 - Chronic obstructive pulmonary disease with (acute) exacerbation SNOMED: 344736138, 656855361 (2) Hypertension ICD Codes: I10 - Essential (primary) hypertension SNOMED: 13605816, 538354886 Qualifiers: Qualified Codes: I10 - Essential (primary) hypertension (3) Obesity (BMI 30.0-34.9) ICD Codes: E66.9 - Obesity, unspecified SNOMED: 427393124, 677212664 (4) New onset type 2 diabetes mellitus ICD Codes: E11.9 - Type 2 diabetes mellitus without complications SNOMED: 55594652 Assessment/Plan Advair watch BS pt is medically cleared for discharge discussed with RN RUPERTO Dunne Subjective Allergies: Coded Allergies: No Known Allergies (Unverified , 02/15/17) Subjective feels ok Objective Last 24 Hour Vital Signs Date Time Temp Pulse Resp B/P Pulse Ox O2 Delivery O2 Flow Rate FiO2 02/27/17 11:52 97.7 94 21 114/67 97 Room Air 02/27/17 09:49 96 18 95 Room Air 02/27/17 09:45 96 18 95 Room Air 02/27/17 08:53 120/73 02/27/17 08:08 98.3 92 19 120/73 95 Room Air 02/27/17 04:00 97.8 76 18 140/74 96 Room Air 02/26/17 20:00 97.7 89 19 145/78 94 Room Air 02/26/17 19:30 Room Air 21 02/26/17 19:30 Room Air 21 02/26/17 15:54 98.2 93 21 143/62 97 Room Air Intake and Output 02/26/17 02/27/17 19:00 07:00 Intake Total 1200 ml 450 ml Balance 1200 ml 450 ml Intake Oral 1200 ml 450 ml # Voids 2 2 Height (Feet): 5 Height (Inches): 2.00 Weight (Pounds): 200 Cardiovascular: normal rate Respiratory/Chest: lungs clear HARRISON VEGA Feb 27, 2017 12:44
--- NOTE | 2017-02-28 09:42 | Discharge Summary ---
Discharge Summary Hospital Course Date of Admission Feb 15, 2017 at 23:51 Date of Discharge Feb 27, 2017 at 15:34 Admitting Diagnosis COPD exacerbation HPI Maria Del Carmen Hinojosa is a 56 year old female who was admitted on Feb 15, 2017 at 23:51 for Chronic Obstructive Pulmonary Disease Exacerbation Hospital Course [id number] Discharge Discharge Disposition Patient was discharged to Home (01) Discharge Diagnoses: Keyana Palmer NP Feb 28, 2017 09:42
--- NOTE | 2017-03-01 00:08 | Discharge Summary 2 SIG ---
DATE OF ADMISSION: 02/15/2017 DATE OF DISCHARGE: 02/27/2017 [employer]AL DELIVERY SYSTEM: Pavel Morataya M.D. BRIEF HOSPITAL COURSE: The patient is a 56-year-old female with history of schizophrenia, who was in her usual state of health until the day prior to admission. She started getting short of breath and unable to talk to the phone. She called paramedics and at ED, she was found to have chronic obstructive pulmonary disease exacerbation and was admitted for further workup. She was given bronchodilators, IV steroids, oxygen, and IV antibiotics. Dr. Morataya was consulted. The patient was diagnosed to have schizophrenia, major depressive disorder, which is recurrent and moderate. She was given Seroquel 200 mg nightly, which was eventually increased to 400 mg nightly and 300 in the a.m. Steroids were tapered and Januvia was added to the medication regimen. The patient was referred to a psychiatric facility. However, the patient has not been suicidal for the past days. She was continued on citalopram and risperidone 4 mg nightly. nutrition services manager were consulted and was referred. The patient was given outpatient mental health clinic. The patient to follow up with psychiatry as outpatient. FINAL DIAGNOSES: 1. Acute chronic obstructive pulmonary disease exacerbation. 2. Hypertension. 3. Obesity. 4. New onset type 2 diabetes. 5. Schizophrenia. 6. Depression. Edgar Farrar M.D. I have been assigned to dictate discharge summary on this account and I was not involved in the patient's management. Keyana Palmer N.P. DR: LE JOB#: [id number] CC:
== END 2017-02-27 15:34 | disposition home or self-care (01) | DRG 191 ==
LOC: ENRESERVTM → ENRESERVDT → ENRESERV → EDBD 22:24 → EMR 22:35 → 2E 23:51 → EDBEDREQ 02-16 00:07 → 3E 02-16 16:31 → 4E 02-21 18:16
DX: J44.1 Chronic obstructive pulmonary disease with (acute) exacerbation (principal); F33.9 Major depressive disorder, recurrent, unspecified; I10 Essential (primary) hypertension; E11.9 Type 2 diabetes mellitus without complications; E66.9 Obesity, unspecified; F17.200 Nicotine dependence, unspecified, uncomplicated; Z91.14 Patient's other noncompliance with medication regimen; F20.9 Schizophrenia, unspecified; E78.5 Hyperlipidemia, unspecified; Z68.36 Body mass index [BMI] 36.0-36.9, adult
CPT/HCPCS: 36415; 71010; 71275; 80053; 80300; 80329; 81003; 82550; 82553; 82962; 83880; 84484; 85025; 87070; 87205; 87324; 93005; 94640; 94664; J1815; J2405; J7620

== ENCOUNTER 2017-04-04 03:02 | Emergency (ER) | payer MEDICAID ==
[~2017-04-04] VITALS: Ht 157.5 cm; Wt 81.6 kg
[~2017-04-04 03:02] MED LIST: AMBIEN CR6.25 MG ORAL; QUETIAPINE FUMA25 MG ORAL; SEROQUEL300 MG ORAL; SEROQUEL400 MG ORAL
[2017-04-04] MEDS ORDERED: LORazepam Inj 2mg/ml 1ml IM ONE (03:30)
[2017-04-04] MEDS ORDERED: SEROQUEL XR300 MG ORAL (03:30)
--- NOTE | 2017-04-04 03:30 | Emergency Room Report ---
History of Present Illness General Chief Complaint: General Complaint Source: Patient Present Illness HPI This is a 56-year-old female with history schizophrenia. She presents with chief complaint of anxiety and can't sleep. She ran out of her [place] for a week and a half now. She said she hasn't slept the last 2 days. Complaining of this of breath, palpitation, week. No fever chills but no nausea no vomiting. Similar symptom in the past. No suicidal thought homicidal thought. Allergies: Coded Allergies: No Known Allergies (Unverified , 02/15/17) Patient History Past Medical History: see triage record, old chart reviewed, schizophrenia, diabetes Past Surgical History: other Family History: none Social History: tobacco use Now: No Immunizations: other Reviewed Nursing Documentation: PMH: Agreed, PSxH: Agreed Nursing Documentation-PMH Hx Cardiac Problems: No Hx COPD: Yes Hx Diabetes: Yes Hx Cancer: No Hx Gastrointestinal Problems: No History Of Psychiatric Problem: Yes - Schizophrenia Hx Neurological Problems: No Review of Systems ENT: Denies: sore throat Cardiovascular: Denies: chest pain, palpitations Gastrointestinal/Abdominal: Denies: diarrhea, nausea, vomiting Musculoskeletal: Denies: back problems Skin: Denies: rash Neurological: Denies: STARKS, seizures All Other Systems: negative except mentioned in HPI Physical Exam Vital Signs Date Time Temp Pulse Resp B/P Pulse Ox O2 Delivery O2 Flow Rate FiO2 04/04/17 03:06 97.5 96 22 150/93 97 Room Air vitals with hypertension Sp02 EP Interpretation: reviewed, normal General Appearance: alert/responsive, no apparent distress, non-toxic Head: normocephalic, atraumatic Eyes: PERRL, EOMI ENT: oropharynx normal Neck: supple/symm/no masses Respiratory: effort normal, no rhonchi, no wheezing Cardiovascular: no murmur, gallop, rub Gastrointestinal: non-tender, no mass, non-distended, no rebound/guarding, normal bowel sounds Musculoskeletal: gait & station normal Neurologic: oriented x3, sensory intact, motor strength/tone normal Psychiatric: anxious Suicide Risk Assessment: Suicidal Ideation: No Had intent to initiate attempt: No Pt's plan for suicide attempt: No Has means to complete attempt: No Skin: no rash, normal palpation Medical Decision Making Diagnostic Impression: Primary Impression: Anxiety ER Course Present with anxiety. No evidence of suicidal thoughts or homicidal thought. Denies any drug use. We'll discharge home. She felt better after Ativan. Last Vital Signs Date Time Temp Pulse Resp B/P Pulse Ox O2 Delivery O2 Flow Rate FiO2 04/04/17 03:06 97.5 96 22 150/93 97 Room Air Status: improved Disposition: HOME, SELF-CARE Condition: Stable Scripts Quetiapine Fumarate (SEROQUEL XR) 300 Mg Tab.er.24h 300 MG ORAL DAILY, #30 TAB Prov: SHANE CARLISLE M.D. 04/04/17 Additional Instructions: Followup with your DrZaki in 7 days. Return if symptom worsen. SHANE CARLISLE M.D. April 04, 2017 03:30
[2017-04-04 03:39] VITALS: BP 150/93
== END 2017-04-04 03:41 | disposition home or self-care (01) ==
LOC: EDUNIT# 03:02 → EDBD 03:02 → EMR 03:22
DX: F41.9 Anxiety disorder, unspecified (principal); E11.9 Type 2 diabetes mellitus without complications; J44.9 Chronic obstructive pulmonary disease, unspecified; F20.9 Schizophrenia, unspecified
CPT/HCPCS: 96372; 99283

== ENCOUNTER 2017-07-02 16:47 | Emergency (ER) | payer MEDICAID ==
[~2017-07-02] VITALS: Ht 162.6 cm; Wt 90.7 kg
[~2017-07-02 16:47] MED LIST changes: +SEROQUEL XR300 MG ORAL
[2017-07-02 17:00] VITALS: BP 115/67
[2017-07-02 17:44] LABS: BASOPHILS % (AUTO) 0.9 % (0.0-2.0); LYMPHOCYTES % (AUTO) 20.9 % (20.0-45.0); MEAN CORPUSCULAR HEMOGLOBIN 34.6 PG (27.0-31.0); MEAN CORPUSCULAR HGB CONC 37.5 G/DL (32.0-36.0); MEAN CORPUSCULAR VOLUME 92 FL (80-99); MEAN PLATELET VOLUME 6.6 FL (6.5-10.1); MONOCYTES % (AUTO) 5.5 % (1.0-10.0); NEUTROPHILS % (AUTO) 71.8 % (45.0-75.0); PLATELET COUNT 362 K/UL (150-450); RED BLOOD COUNT 5.23 M/UL (4.20-5.40); RED CELL DISTRIBUTION WIDTH 11.2 % (11.6-14.8); WHITE BLOOD COUNT 14.9 K/UL (4.8-10.8)
[2017-07-02] MEDS ORDERED: QUETIAPINE FUMA25 MG ORAL (17:54)
[2017-07-02] MEDS ORDERED: GLUCOPHAGE500 MG ORAL (17:54)
[2017-07-02] MEDS ORDERED: ATIVAN1 MG ORAL (17:54)
[2017-07-02] MEDS ORDERED: LEXAPRO10 MG ORAL (17:54)
[2017-07-02] MEDS ORDERED: AMBIEN5 MG ORAL (17:54)
[2017-07-02 18:02] LABS: ACETAMINOPHEN < 10 ug/mL (10-30); ALANINE AMINOTRANSFERASE 23 U/L (3-33); ALBUMIN/GLOBULIN RATIO 1.6 (1.0-2.7); ALCOHOL < 10 mg/dL; ANION GAP 14 (5-15); ASPARTATE AMINO TRANSFERASE 21 U/L (5-40); CARBON DIOXIDE 27 mEQ/L (20-30); CHLORIDE 97 mEQ/L (98-107); CREATININE 0.8 mg/dL (0.5-0.9); GLOMERULAR FILTRATION RATE > 60 mL/min (>60); HEMOLYSIS 1; POTASSIUM 4.1 mEQ/L (3.4-4.9); SODIUM 138 mEQ/L (135-145); TOTAL PROTEIN 7.3 g/dL (6.6-8.7)
--- NOTE | 2017-07-02 20:01 | Emergency Room Report ---
History of Present Illness General Chief Complaint: Behavioral Complaint Source: EMS (NATHALY DANIELSON) Present Illness HPI The patient is a 56-year-old female brought in by EMS for possible SI. The patient was hurt in her board and care facility saying that she wanted to kill herself and then left the facility and ran into traffic. The police were at the scene and states that the patient attempted to coax them to shoot at her. She states that she has a history of bipolar disorder. She does not give any other information. (NATHALY DANIELSON) Allergies: Coded Allergies: No Known Allergies (Unverified , 02/15/17) Patient History Past Medical History: see triage record, psych hx - schizophrenia Pertinent Family History: none Reviewed Nursing Documentation: PMH: Agreed, PSxH: Agreed (NATHALY DANIELSON) Nursing Documentation-PMH Past Medical History: No History, Except For Hx Cardiac Problems: No Hx COPD: Yes Hx Diabetes: Yes Hx Cancer: No Hx Gastrointestinal Problems: No History Of Psychiatric Problem: Yes - BIPOLAR, SCHEZOPHERNIA Hx Neurological Problems: No (NATHALY DANIELSON P.AZaki) Review of Systems All Other Systems: negative except mentioned in HPI (NATHALY DANIELSON P.AZaki) Physical Exam Vital Signs Date Time Temp Pulse Resp B/P (MAP) Pulse Ox O2 Delivery O2 Flow Rate FiO2 07/02/17 16:43 98.8 100 16 115/67 98 Room Air Sp02 EP Interpretation: reviewed, normal General Appearance: no apparent distress, alert, GCS 15, non-toxic Head: normocephalic, atraumatic Eyes: bilateral eye normal inspection, bilateral eye PERRL ENT: hearing grossly normal, normal pharynx, no angioedema, normal voice Neck: full range of motion, supple/symm/no masses Respiratory: chest non-tender, lungs clear, normal breath sounds, speaking full sentences Cardiovascular #1: regular rate, rhythm, no edema Musculoskeletal: back normal, gait/station normal, normal range of motion, non- tender Neurologic: alert, responsive, motor strength/tone normal, sensory intact, speech normal Psychiatric: anxious, other - + delusions Skin: normal color, no rash, warm/dry, well hydrated Lymphatic: no adenopathy (NATHALY DANIELSON.AZaki) Medical Decision Making PA Attestation Dr. Hodgson is my supervising physician. Patient management was discussed with my supervising physician (NATHALY DANIELSON) Diagnostic Impression: Primary Impression: Behavioral disorder ER Course The patient is a 56-year-old female presenting for SI. DDx: SI, HI, psychosis, depression, anxiety PE: NAD. Anxious with flat affect. Restless. All tests unremarkable. The patient was given zyprexa and ativan and is now more stable and relaxed. The patient is medically cleared at this time and stable for transfer to psychiatric facility. See Nursing notes for transfer information. Laboratory Tests Test 07/02/17 17:25 07/02/17 19:00 White Blood Count 14.9 K/UL (4.8-10.8) H Red Blood Count 5.23 M/UL (4.20-5.40) Hemoglobin 18.1 G/DL (12.0-16.0) *H Hematocrit 48.2 % (37.0-47.0) H Mean Corpuscular Volume 92 FL (80-99) Mean Corpuscular Hemoglobin 34.6 PG (27.0-31.0) H Mean Corpuscular Hemoglobin Concent 37.5 G/DL (32.0-36.0) H Red Cell Distribution Width 11.2 % (11.6-14.8) L Platelet Count 362 K/UL (150-450) Mean Platelet Volume 6.6 FL (6.5-10.1) Neutrophils (%) (Auto) 71.8 % (45.0-75.0) Lymphocytes (%) (Auto) 20.9 % (20.0-45.0) Monocytes (%) (Auto) 5.5 % (1.0-10.0) Eosinophils (%) (Auto) 1.0 % (0.0-3.0) Basophils (%) (Auto) 0.9 % (0.0-2.0) Sodium Level 138 mEQ/L (135-145) Potassium Level 4.1 mEQ/L (3.4-4.9) Chloride Level 97 mEQ/L (98-107) L Carbon Dioxide Level 27 mEQ/L (20-30) Anion Gap 14 (5-15) Blood Urea Nitrogen 12 mg/dL (7-23) Creatinine 0.8 mg/dL (0.5-0.9) Estimate Glomerular Filtration Rate > 60 mL/min (>60) Glucose Level 231 mg/dL (74-106) H Calcium Level 10.0 mg/dL (8.6-10.2) Total Bilirubin 0.4 mg/dL (0.0-1.2) Aspartate Amino Transferase (AST) 21 U/L (5-40) Alanine Aminotransferase (ALT) 23 U/L (3-33) Alkaline Phosphatase 91 U/L (35-104) Total Protein 7.3 g/dL (6.6-8.7) Albumin 4.5 g/dL (3.5-5.2) Globulin 2.8 g/dL Albumin/Globulin Ratio 1.6 (1.0-2.7) Salicylates Level < 1 mg/dL (10-30) L Acetaminophen Level < 10 ug/mL (10-30) L Serum Alcohol < 10 mg/dL Urine Opiates Screen Negative (NEGATIVE) Urine Barbiturates Screen Negative (NEGATIVE) Phencyclidine (PCP) Screen Negative (NEGATIVE) Urine Amphetamines Screen Negative (NEGATIVE) Urine Benzodiazepines Screen Negative (NEGATIVE) Urine Cocaine Screen Negative (NEGATIVE) Urine Marijuana (THC) Screen Negative (NEGATIVE) Lab Results Impression Unremarkable (NATHALY DANIELSON) Last Vital Signs Date Time Temp Pulse Resp B/P (MAP) Pulse Ox O2 Delivery O2 Flow Rate FiO2 07/02/17 16:43 98.8 100 16 115/67 98 Room Air Status: improved (NATHALY DANIELSON) Disposition: XFER TO PSYCH HOSP/UNIT Condition: Stable Referrals: [facility],REFERRING (PCP) NATHALY DANIELSON Jul 02, 2017 20:01 Ramiro Hodgson Jul 03, 2017 00:16
[2017-07-02 22:45] VITALS: BP 140/73
[2017-07-03] VITALS (7 sets, daily range): BP systolic 125–145; BP diastolic 67–99
[2017-07-03] MEDS ORDERED: LORazepam 1mg tab ORAL ONE (09:30)
== END 2017-07-03 13:45 ==
LOC: EDBD 16:47 → EMR 16:59
DX: F91.9 Conduct disorder, unspecified (principal); J44.9 Chronic obstructive pulmonary disease, unspecified; E11.9 Type 2 diabetes mellitus without complications; F20.9 Schizophrenia, unspecified
CPT/HCPCS: 36415; 80053; 80300; 80329; 81025; 85025; 99285